=== PATIENT | male | born 1970 | race African-American/Black ===

== ENCOUNTER → 2017-08-26 | Outpatient (CLI) | payer OTHER ==
--- NOTE | 2017-08-26 22:08 | MR ---
PRE AND POSTCONTRAST ENHANCED MRI OF THE BRAIN: CLINICAL HISTORY: Memory loss, hx stroke 2013, prior head trauma x 2 CONTRAST: Gadavist 9ml Multiplanar and multispin-echo imaging of the brain was performed both before and after the administr ation of contrast. There is a remote insult noted within the superior aspect of the right cerebellum. The remaining vent ricles, basal cisterns and sulci overlying the cerebral convexities are within normal limits. There is no evidence for midline shift or mass effect. Acute intracranial hemorrhage or extra-axial collection is not evident. There are a few scattered nonspecific white matter foci noted on T2 FLAIR data set. Following contrast administration, there is no evidence for pathologic enhancement or enhancing mass. The paranasal sinuses and mastoid air cells are well-aerated. IMPRESSION: 1. Small focal area of remote insult to the right superior cerebellum. 2. Nonspecific white matter changes.
== END | disposition home or self-care (01) ==
LOC: RADMRIMAIN 18:10
PROVIDERS: ATTEND Nurse Practitioner Family
DX: R90.89 Other abnormal findings on diagnostic imaging of central nervous system (principal); R41.3 Other amnesia
CPT/HCPCS: 70553; A9581

== ENCOUNTER 2019-12-31 12:59 | Emergency (ER) | payer OTHER ==
[2019-12-31 13:30] VITALS: BP 121/83; PULSE 61; RESP 18; TEMP 98.6
[2019-12-31] MEDS ORDERED: KETOROLAC 30 MG/ML 1 ML VIAL IM STA (14:28)
--- NOTE | 2019-12-31 14:33 | ED ---
General Adult HPI - General Chief complaint: Back Pain/Injury Stated complaint: Back pain Time Seen by Provider: 12/31/19 14:25 Source: patient, RN notes reviewed, old records reviewed Mode of arrival: ambulatory Limitations: no limitations - History of Present Illness Initial comments: 41-year-old male presents with 1 week of low back pain. Patient recently moved and had been moving boxes as well as some furniture. He's had progressive stiffening and pain across his low back. Denies fever or chills. He's not an IV drug user. He denies bowel or bladder dysfunction. Denies sensory changes in the legs. He has been ambulatory however he's had pain in this location with movement. No abdominal pain. No fever or chills. No trauma, no fall. - Related Data Home Medications Medication Instructions Recorded Confirmed Baclofen [Lioresal] 10 mg PO BID 06/16/16 06/16/16 Bisoprolol-Hctz 5-6.25 mg [Ziac 1 tab PO DAILY 06/16/16 06/16/16 5-6.25] Gabapentin [Neurontin] 100 mg PO BID 06/16/16 06/16/16 Simvastatin [Zocor] 20 mg PO HS 06/16/16 06/16/16 busPIRone HCL [Buspar] 7.5 mg PO DAILY 06/16/16 06/16/16 Previous Rx's Medication Instructions Recorded HYDROcodone/APAP 5-325MG [[place] 5] 1 each PO Q4HR PRN #20 tab 06/16/16 Ibuprofen [Motrin] 600 mg PO Q8HR PRN #24 tab 12/31/19 Allergies Allergy/AdvReac Type Severity Reaction Status Date / Time No Known Allergies Allergy Verified 12/31/19 13:30 Review of Systems ROS Statement: Those systems with pertinent positive or pertinent negative responses have been documented in the HPI. ROS Other: All systems not noted in ROS Statement are negative. Past Medical History Past Medical History: Hyperlipidemia, Hypertension Additional Past Medical History / Comment(s): back claudia History of Any Multi-Drug Resistant Organisms: MRSA Date of last positivie culture/infection: 2012 MDRO Source:: neck Past Surgical History: Hernia Repair Past Psychological History: Anxiety Smoking Status: Current every day smoker Past Alcohol Use History: Occasional Past Drug Use History: Marijuana General Exam Limitations: no limitations General appearance: alert, in no apparent distress Head exam: Present: atraumatic, normocephalic Eye exam: Present: normal appearance, PERRL ENT exam: Present: normal exam Neck exam: Present: normal inspection. Absent: tenderness, meningismus Respiratory exam: Present: normal lung sounds bilaterally. Absent: respiratory distress, wheezes Cardiovascular Exam: Present: regular rate, normal rhythm GI/Abdominal exam: Present: soft. Absent: distended, tenderness Extremities exam: Present: normal inspection, normal capillary refill. Absent: pedal edema Back exam: Present: normal inspection, tenderness, muscle spasm, paraspinal tenderness. Absent: vertebral tenderness Neurological exam: Present: alert, oriented X3, CN II-XII intact, normal gait, reflexes normal (Normal patellar reflexes bilaterally). Absent: motor sensory deficit Psychiatric exam: Present: normal affect, normal mood Skin exam: Present: warm, dry, intact. Absent: cyanosis, diaphoretic Course Vital Signs 12/31/19 13:28 Temperature 98.6 F Pulse Rate 61 Respiratory 18 Rate Blood Pressure 121/83 O2 Sat by Pulse 99 Oximetry Medical Decision Making - Medical Decision Making 41-year-old male with mechanical low back pain, no injury, exam consistent with low back strain, no red flags. Patient prescribed anti-inflammatory, he has an appointment with his primary care physician in 3 days. He will maintain this appointment. He will return with worsening or changing symptoms. Disposition Clinical Impression: Mechanical back pain, Acute exacerbation of chronic low back pain Disposition: HOME SELF-CARE Condition: Good Instructions (If sedation given, give patient instructions): Acute Low Back Pain (ED) Prescriptions: Ibuprofen [Motrin] 600 mg PO Q8HR PRN #24 tab PRN Reason: Pain Is patient prescribed a controlled substance at d/c from ED?: No Referrals: Ivette Mahmood MD [Primary Care Provider] - 1-2 days Time of Disposition: 14:32
== END 2019-12-31 15:16 | disposition home or self-care (01) ==
LOC: EC 12:59
DX: M54.5 Low back pain (principal); G89.29 Other chronic pain; E78.5 Hyperlipidemia, unspecified; I10 Essential (primary) hypertension; F41.9 Anxiety disorder, unspecified; F17.200 Nicotine dependence, unspecified, uncomplicated; Z79.899 Other long term (current) drug therapy; Z86.14 Personal history of Methicillin resistant Staphylococcus aureus infection
CPT/HCPCS: 96372; 99283; J1885